=== PATIENT | female | born 1950 | race Caucasian/White ===

== ENCOUNTER 2022-09-23 12:47 | Observation (INO) | payer MEDICARE, SELFPAY ==
--- NOTE | ~2022-09-23 | XR_ITS ---
XR lumbar spine 2-3V DATE: 09/24/2022 17:41 INDICATION: L3 fracture. Recent fall, low back pain TECHNIQUE: Standing AP, lateral and coned lateral lumbosacral views COMPARISON: 09/23/2022 CT lumbar spine 09/24/2022 MR lumbar spine FINDINGS: There is mild thoracolumbar levoscoliosis. There is osteopenia. There is degenerative spurring throughout the included lower thoracic and upper lumbar spine consiste nt with diffuse idiopathic skeletal hyperostosis (DISH). There is moderately severe degenerative disc disease and mild retrolisthesis at L2-3. There is severe degenerative disc disease at L5-S1. There is prominent degenerative change at the apophyseal joints of the lower lumbar and lumbosacral a taylor with associated grade 1 anterolisthesis at L4-5. Included lower thoracic and lumbar pedicles are intact. Stable concave inferior vertebral endplate of L3 fracture with mild loss of height of this vertebral body. No fracture or bone destruction of the lumbar spine is noted otherwise. Degenerative change at the sacroiliac joints. No erosive change or ankylosis is evident and sacroilia c joints. Surgical clips, right upper quadrant, consistent with cholecystectomy. IMPRESSION: Stable L3 compression fracture Mild thoracolumbar levoscoliosis Multilevel degenerative disc disease, most severe at L5-S1 Degenerative changes apophyseal joints, with associated grade 1 anterolisthesis at L4-5 Diffuse idiopathic skeletal hyperostosis of the lower thoracic and upper lumbar spine Reviewed, dictated and finalized at location A. ER AIRCRAFT
--- NOTE | ~2022-09-23 | MR_ITS ---
EXAMINATION: MR lumbar spine wo con DATE: 09/24/2022 08:03 INDICATION: L3 fracture. Radicular pain. TECHNIQUE: Magnetic resonance imaging (MRI) of the lumbar spine was performed without intravenous con trast. Sequences included sagittal T2-weighted FSE, sagittal T2-weighted FS FSE, sagittal T1-weighted FSE, and axial T2-weighted FSE. COMPARISON: Lumbar spine radiographs 09/24/2022, CT 09/23/22 FINDINGS: There is 11 degrees levoscoliosis of the lumbar spine. There is 3 mm retrolisthesis of L2 o n L3 and 3 mm anterolisthesis of L4 on L5. There is mild chronic anterior wedging of T11 and T12 vert ebral bodies. There is a burst fracture involving L3 inferior endplate with 1/5 loss of height, low s ignal fracture line, bone marrow edema, and retropulsion of bone 2 mm into central spinal canal. Ther e is moderate decreased disc height at L2-L3 and severely decreased disc height at L5-S1 with endplat e remodeling. The distal spinal cord signal intensity is normal. The conus medullaris is at T12-L1. T he following disc levels are specifically discussed: L1-L2: The disc is bulging. There is mild bilateral facet joint osteoarthritis. There is mild right n eural foraminal stenosis. There is mild central canal stenosis. L2-L3: The disc is bulging with superimposed central extrusion. There is severe bilateral facet joint osteoarthritis. There is moderate bilateral neural foraminal stenosis. There is mild central canal s tenosis. L3-L4: The disc is bulging. There is severe bilateral facet joint osteoarthritis. There is mild bilat eral neural foraminal stenosis. There is no central canal stenosis. L4-L5: The disc is bulging. There is severe bilateral facet joint osteoarthritis. There is mild bilat eral neural foraminal stenosis. There is mild central canal stenosis. L5-S1: The disc is bulging. There is interbody fusion at L5-S1 with disc calcification. There is mild bilateral facet joint osteoarthritis. There is mild bilateral neural foraminal stenosis. There is mi ld central canal stenosis. IMPRESSION: 1. Acute versus subacute L3 burst fracture. 2. Moderate lumbar spondylosis. Reviewed, dictated and finalized at location A. ER RECEPTIONIST
--- NOTE | ~2022-09-23 | CT_ITS ---
EXAMINATION: CT lumbar spine wo con DATE: 09/23/2022 14:16 INDICATION: Low back pain post fall TECHNIQUE: Computed tomography (CT) of the lumbar spine was performed without intravenous contrast. A utomated exposure control and iterative reconstruction technique were employed. The dose-length produ ct was 1203.59 mGy-cm. COMPARISON: None FINDINGS: Mild lumbar levocurvature. 2-3 mm anterolisthesis L4 on L5. 2 mm retrolisthesis L2 on L3. Acute burst fracture with subtle linear lucent fracture lines along the inferior endplate of L3 with <20% centra l vertebral body height loss. There is 2 mm retropulsion along the inferior aspect of the posterior w all of L3. Remaining vertebral body heights are normal. Fusion across the L5-S1 disc space. Bridging osteophytes along the right lateral margin of T11 T12-T12 on L1 and nearly bridging at the L1-L2. Mod erate disc height loss with vacuum phenomena at L2-L3 mild disc height loss at T11-T12 and T12-L1. Mi nimal vacuum phenomena at L3-L4. 12 mm low-attenuation exophytic cyst at the upper pole the right kid shubham and 12 mm bilobed exophytic lesion at the posterior lower pole of the left kidney was slightly gr eater than simple fluid attenuation which remains equivocal between complex cyst and solid neoplasm. The following disc levels are specifically discussed: T11-T12: Small central disc protrusion. There is mild right and moderate left facet joint osteoarthri tis. There is mild right neural foraminal stenosis. There is mild central canal stenosis. T12-L1: Osteophyte versus ossification along the posterior longitudinal ligament. There is mild right and moderate left facet joint osteoarthritis. There is no neural foraminal stenosis. There is mild c entral canal stenosis. L1-L2: Disc is bulging. There is moderate bilateral facet joint osteoarthritis. There is mild right n eural foraminal stenosis. There is mild central canal stenosis. L2-L3: Disc is bulging with tiny focus of vacuum phenomena within a likely small disc extrusion on th e inferior posterior wall of L2. There is severe right and moderate to severe left facet joint osteoa rthritis. There is mild to moderate left and moderate right neural foraminal stenosis. There is mild to moderate central canal stenosis. L3-L4: Disc is mildly bulging. There is moderate to severe left and severe right facet joint osteoart hritis. There is mild to moderate bilateral neural foraminal stenosis. There is mild to moderate cent ral canal stenosis. L4-L5: Disc is bulging. There is severe bilateral facet joint osteoarthritis. There is mild left and mild to moderate right neural foraminal stenosis. There is moderate central canal stenosis. L5-S1: Disc space is fused with small bilateral foraminal zone endplate osteophytes. Effusion with mo derate hypertrophic change at the bilateral facet joints. There is moderate bilateral, right greater than left neural foraminal stenosis. There is no central canal stenosis. IMPRESSION: 1. Acute L3 burst fracture involving the inferior endplate, with <20% central vertebral body height l oss and with 2 mm retropulsion along the inferior aspect of the posterior wall. 2. Moderate lumbar and severe lumbosacral spondylosis. 2. 12 mm indeterminate eccentric left renal lesion most likely proteinaceous/hemorrhagic cysts althou gh differential includes solid neoplasm. . Would recommend follow-up pre and postcontrast MRI or CT. Reviewed, dictated and finalized at location B. BOX COVERER IMPRESSION: 1. Acute L3 burst fracture involving the inferior endplate, with <20% central v ertebral body height loss and with 2 mm retropulsion along the inferior aspect of the posterior wall. 2. Moderate lumbar and severe lumbosacral spondylosis. 2. 12 mm indeterminate ecce
[2022-09-23 12:56] VITALS: BP 166/70; PULSE 72; RESP 14; TEMP 36.8; O2SAT 98
[2022-09-23] MEDS: traMADol HCL (*CRX) 50 MG TABLET PO (14:05)
[2022-09-23] MEDS: ONDANSETRON HCL ODT 4 MG TABLET PO (15:15)
[2022-09-23] MEDS: HYDROmorphone HCL INJ (*CRX) 1 MG/ML SYR IM (15:15)
--- NOTE | 2022-09-23 15:15 | ED.FALL ---
HPI - Fall General Chief Complaint: Fall Stated Complaint: fall two days ago, back and leg pain Time Seen by Provider: 09/23/22 13:34 Source: patient and RN notes reviewed Mode of arrival: ambulatory Limitations: no limitations History of Present Illness HPI Narrative: This is a 71 year old female who presents for evaluation of lower back pain s/p fall. She states she accidentally fell 4 days ago, and she fell backwards, hitting her lower back on concrete steps. She has been having lower back pain that has gradually worsened. She also reports pain radiating down to her left lower leg and she also reports pain radiating to her right thigh. She denies leg weakness, numbness, tingling, bowel incontinence or urinary retention. She has been taking ibuprofen 400 mg every 6 hours for her pain without improvement. Related Data Home Medications Medication Instructions Recorded Confirmed amlodipine 5 mg tablet 5 mg PO DAILY 09/23/22 09/23/22 citalopram 20 mg tablet 20 mg PO DAILY 09/23/22 09/23/22 levothyroxine 137 mcg tablet 137 mcg PO DAILY 09/23/22 09/23/22 lisinopril 20 1 tablet PO DAILY 09/23/22 09/23/22 mg-hydrochlorothiazide 12.5 mg tablet metformin 500 mg tablet,extended 500 mg PO BID 09/23/22 09/23/22 release 24 hr pantoprazole 40 mg tablet,delayed 40 mg PO DAILY 09/23/22 09/23/22 release pioglitazone 15 mg tablet 15 mg PO DAILY 09/23/22 09/23/22 pravastatin 80 mg tablet 80 mg PO DAILY 09/23/22 09/23/22 Allergies Allergy/AdvReac Type Severity Reaction Status Date / Time clindamycin Allergy Rash Verified 09/23/22 20:42 Review of Systems Review of Systems: All systems reviewed & are unremarkable except as noted in HPI and below Constitutional: Constitutional: Denies chills and Denies fatigue Cardiovascular: Cardiovascular: Denies syncope, Denies rapid heart rate, Denies irregular heart rhythm, Denies leg edema and Denies dyspnea Respiratory: Respiratory: Denies chest congestion, Denies hemoptysis, Denies excessive phlegm production and Denies dyspnea Gastrointestinal: Gastrointestinal: Denies abdominal pain, Denies hematochezia, Denies diarrhea and Denies vomiting Genitourinary: Genitourinary: Denies hematuria and Denies dysuria Musculoskeletal: Musculoskeletal: Denies joint swelling and Denies muscle weakness Neurologic: Denies syncope, Denies focal weakness and Denies weakness PMFSH Past Medical History Medical History (Updated 09/23/22 @ 22:30 by Arianne Álvarez MD) Anxiety Hypertension Surgical History Surgical History (Updated 09/23/22 @ 15:20 by Arianne Álvarez MD) H/O neck surgery Social History Social History (Updated 09/23/22 @ 15:20 by Arianne Álvarez MD) Smoking status: Never smoker Exam Const: General: no acute distress and alert Nutritional Appearance: well nourished and obese Orientation/consciousness: patient oriented x3 Limitations: no limitations HENMT: Face and sinus: normal facial exam Eyes: EOM: EOMs intact bilaterally Neck: Neck: normal visual inspection Chest: Chest palpation & inspection: normal inspection of the chest Resp: Effort & Inspection: normal respiratory effort Auscultation: clear to auscultation bilaterally Cardio: Rate: regular rate Rhythm: regular rhythm Heart sounds: no murmurs GI: GI Palp: Yes Soft to palpation, No Tenderness to palpation present (GI), No Guarding due to palpation present (GI) and No Rigid due to palpation Auscultation: normal bowel sounds Back/Spine/Pelvis: Back: no CVA tenderness Cervical Spine: cervical ROM normal Thoracic/Lumbar Spine: paraspinal muscle tenderness on the left Pelvis: buttock tenderness on the left Course Consultations Consultation #1: I discussed case with DR. Leblanc with neurosurgery. He reviewed patient's CT lumbar spine. He recommends that patient get MRI lumbar spine due to radicular pain. He states patient can stay at [place] and being admitted to hospital and they will
[2022-09-23 16:13] LABS: Basophils Absolute Auto 0.1 K/mm3 (0.0-0.1); Basophils Percent Auto 0.6 % (0.2-1.2); Eosinophils Absolute Auto 0.3 K/mm3 (0-0.3); Eosinophils Percent Auto 3.6 % (0-4.4); Hematocrit 39.2 % (37.0-47.0); Hemoglobin 12.4 g/dL (12.0-15.0); Immature Granulocyte Absolute 0.02 K/mm3 (0.00-0.031); Immature Granulocyte Percent A 0.3 % (0-0.5); Lymphocytes Absolute Auto 2.02 K/mm3 (0.9-3.2); Lymphocytes Percent Auto 25.6 % (18.3-44.2); Mean Corpuscular HGB Conc 31.6 g/dl (32-36); Mean Corpuscular Hemoglobin 26.8 pg (26-34); Mean Corpuscular Volume 84.8 fl (80-100); Mean Platelet Volume 9.9 fl (7.4-10.4); Monocytes Absolute Auto 0.5 K/mm3 (0.1-0.6); Monocytes Percent Auto 5.8 % (2.6-8.5); Neutrophils Absolute Auto 5.1 K/mm3 (1.3-6.7); Neutrophils Percent Auto 64.1 % (45.5-73.1); Platelet Count Result 307 k/mm3 (150-375); Red Blood Count 4.62 M/mm3 (4.2-5.4); Red Cell Distribution Width 14.1 % (11.5-14.5); White Blood Count 7.9 K/mm3 (4.5-10.0)
[2022-09-23 16:25] LABS: Alanine Aminotransferase 32 U/L (6-35); Albumin Level 4.2 g/dL (3.5-5.1); Alkaline Phosphatase 59 U/L (38-126); Anion Gap 7 mmol/L (8-16); Aspartate Amino Transferase 35 U/L (14-36); Bilirubin,Total 0.6 mg/dL (0.2-1.3); Blood Urea Nitrogen 22 mg/dL (7-17); Calcium 8.5 mg/dL (8.4-10.2); Carbon Dioxide 28 mmol/L (22-30); Chloride 98 mmol/L (98-107); Estimated CRCL calculation 49 ml/min; Estimated Glomerular Filt Rate 54; Glucose 110 mg/dL (65-110); Potassium 3.5 mmol/L (3.4-5.0); Sodium 133 mmol/L (137-145)
[2022-09-23 16:59] LABS: Influenza A QL RT-PCR Negative (Negative); Influenza B QL RT-PCR Negative (Negative); SARS-CoV-2 RNA PCR Negative
--- NOTE | 2022-09-23 18:00 | PM.IMHP ---
H&P: HPI History of Present Illness Date/Time: 09/23/22 18:00 Chief Complaint: Back pain after fall. Narrative: This is a very pleasant 71-year-old female with hypertension, hyperlipidemia, hypothyroidism, diabetes, sleep apnea, and rheumatoid arthritis who presented to the ED for evaluation of back pain after a fall. She is from [place], [place] and she and her recently traveled to the area to be with family for the holidays. The day before they left on their journey, she had her hands full and accidentally stepped backwards and fell down a couple of steps flat on her back. She did not really have any pain or discomfort the 1st day however since that time she has had increasing pain in the lower back that has been constant. She has a difficult time describing the pain in the low back but states that it radiates a ?hot poker? like pain down her left leg and she is now having some soreness in the right upper outer thigh. The in her legs is worse with weight-bearing. She has not been able to find a comfortable position to improve the pain in the low back. She has been taking ibuprofen 400 milligrams q.6 hours for her pain without much improvement. She has tried heat and that has not helped either. She has not slept and she has not had much of an appetite due to the pain. She denies head trauma and loss of consciousness in the fall. She has not noticed any weakness in the lower extremities or paresthesias and she denies saddle anesthesia and bowel and bladder issues. Lumbar CT in the ER showed acute L3 burst fracture involving the inferior endplate with less than 20% central vertebral body height loss and 2 millimeters retropulsion along the inferior aspect of the posterior wall. Case was discussed with the neurosurgeon on-call who recommends admission for pain control an MRI in a.m. Also of note a 12 millimeter indeterminate a centric left renal lesion was also noted and patient reports that this has been seen before and it has been stable. Review of Systems Review of Systems: Twelve systems were reviewed and are negative except for as per HPI. [facility] Past Medical History Medical History (Updated 09/23/22 @ 22:43 by Jacquie Arredondo PA-C) Anxiety Hyperlipidemia Hypertension Hypothyroidism associated with surgical procedure Obstructive sleep apnea on CPAP Rheumatoid arthritis Thyroid cancer Status post thyroidectomy. Type 2 diabetes mellitus Surgical History Surgical History (Updated 09/23/22 @ 22:38 by Jacquie Arredondo PA-C) History of appendectomy History of cholecystectomy History of hernia repair History of laminectomy History of thyroidectomy History of tonsillectomy Family History Family History (Updated 09/23/22 @ 22:38 by Jacquie Arredondo PA-C) Other Adopted Social History Social History (Updated 09/23/22 @ 22:40 by Jacquie Arredondo PA-C) Social History: Lives in [place], [place] with spouse. They have 2 children. Retired from a management position for several medical specialties. No alcohol, tobacco, or illicit substance abuse. Surrogate medical decision maker: Chidi Macariod, spouse. Code status: Full code. Meds Home Medications and Allergies Home Medications Medication Instructions Recorded Confirmed Type amlodipine 5 mg tablet 5 mg PO DAILY 09/23/22 09/23/22 History citalopram 20 mg tablet 20 mg PO DAILY 09/23/22 09/23/22 History levothyroxine 137 mcg tablet 137 mcg PO DAILY 09/23/22 09/23/22 History lisinopril 20 1 tablet PO DAILY 09/23/22 09/23/22 History mg-hydrochlorothiazide 12.5 mg tablet metformin 500 mg tablet,extended 500 mg PO BID 09/23/22 09/23/22 History release 24 hr pantoprazole 40 mg tablet,delayed 40 mg PO DAILY 09/23/22 09/23/22 History release pioglitazone 15 mg tablet 15 mg PO DAILY 09/23/22 09/23/22 History pravastatin 80 mg tablet 80 mg PO DAILY 09/23/22 09/23/22 History Allergies Allergy/AdvReac Type Severity Reaction Statu
[2022-09-23 18:28] VITALS: BP 114/69; PULSE 70; RESP 18; O2SAT 95
[2022-09-23 19:12] VITALS: BP 132/52; PULSE 72; RESP 18; O2SAT 96
[2022-09-23] MEDS: HYDROmorphone HCL INJ (*CRX) 1 MG/ML SYR 0.5 MG IV PUSH ×2 (19:16→23:29)
--- NOTE | 2022-09-23 20:40 | PC.NURSE ---
Patient arrived on 3 Med-Surg on 20:40 on 09/23/2022
[2022-09-23 20:51] VITALS: BMI 40.5
[2022-09-23 21:51] VITALS: BP 116/42; PULSE 66; RESP 18; TEMP 36.2; O2SAT 90
[2022-09-23 22:49] VITALS: BMI 40.5
[2022-09-23] MEDS: SODIUM CHLORIDE 0.9% IV 1,000 ML 100 ML IV CONT (23:43)
[2022-09-24 01:31] LABS: Glucose Point of Care 109 mg/dl (65-105)
[2022-09-24] MEDS: HYDROmorphone HCL INJ (*CRX) 1 MG/ML SYR 0.5 MG IV PUSH (05:04)
[2022-09-24] MEDS: LEVOTHYROXINE SODIUM 25 MCG TABLET PO (05:40)
[2022-09-24] MEDS: LEVOTHYROXINE SODIUM 112 MCG TABLET PO (05:40)
[2022-09-24 05:52] VITALS: BP 100/50; PULSE 83; RESP 20; TEMP 36.4; O2SAT 92
[2022-09-24 06:46] LABS: Anion Gap 5 mmol/L (8-16); Blood Urea Nitrogen 19 mg/dL (7-17); Calcium 8.2 mg/dL (8.4-10.2); Carbon Dioxide 29 mmol/L (22-30); Chloride 98 mmol/L (98-107); Estimated CRCL calculation 49 ml/min; Estimated Glomerular Filt Rate 49; Glucose 138 mg/dL (65-110); Magnesium 1.6 mg/dL (1.6-2.3); Potassium 3.6 mmol/L (3.4-5.0); Sodium 132 mmol/L (137-145)
[2022-09-24 06:50] LABS: Hematocrit 38.4 % (37.0-47.0); Hemoglobin 12.1 g/dL (12.0-15.0); Mean Corpuscular HGB Conc 31.5 g/dl (32-36); Mean Corpuscular Hemoglobin 27.6 pg (26-34); Mean Corpuscular Volume 87.7 fl (80-100); Mean Platelet Volume 10.2 fl (7.4-10.4); Platelet Count Result 304 k/mm3 (150-375); Red Blood Count 4.38 M/mm3 (4.2-5.4); Red Cell Distribution Width 14.1 % (11.5-14.5); White Blood Count 7.7 K/mm3 (4.5-10.0)
--- NOTE | 2022-09-24 07:52 | P.PNIM_ITS ---
Progress Note: A&P Assessment and Plan (1) Burst fracture of lumbar vertebra: Qualifiers: Encounter type: initial encounter Fracture type: closed Qualified Code(s): S32.001A - Stable burst fracture of unspecified lumbar vertebra, initial encounter for closed fracture Code(s): S32.001A - Stable burst fracture of unspecified lumbar vertebra, initial encounter for closed fracture Status: Acute Assessment and Plan: * Reported fall of 2 steps on back * L3 burst fracture noted * Neurosurgery consulted * Will need weight bearing status and most likely a brace * Pain medications on board * MRI ordered (2) Hyponatremia: Code(s): E87.1 - Hypo-osmolality and hyponatremia Status: Acute Assessment and Plan: * Current sodium 132 * Stop fluids since sodium is stable * Continue to trend labs * Adjust therapy as indicated (3) Hypertension: Code(s): I10 - Essential (primary) hypertension Status: Acute Assessment and Plan: * BP currently 100/50, probably related to pain medications * Continue amlodipine and lisinopril, continue to hold HCTZ for now * Trend BP * Adjust therapy as indicated (4) Hyperlipidemia: Code(s): E78.5 - Hyperlipidemia, unspecified Status: Acute Assessment and Plan: * Continue statin; LFTs within normal limits. (5) Type 2 diabetes mellitus: Code(s): E11.9 - Type 2 diabetes mellitus without complications Status: Acute Assessment and Plan: * Current glucose is 138 * Continue home medications * Initiate sliding scale insulin * Accu-Cheks * hypoglycemic protocol. * A1c (6) Hypothyroidism associated with surgical procedure: Code(s): E89.0 - Postprocedural hypothyroidism Status: Acute Assessment and Plan: * Continue levothyroxine * TSH 0.254, T4 (7) Obstructive sleep apnea on CPAP: Code(s): G47.33 - Obstructive sleep apnea (adult) (pediatric); Z99.89 - Dependence on other enabling machines and devices Status: Acute Assessment and Plan: * CPAP will be provided for the patient to use while hospitalized. Time Spent With Patient Time with patient: Greater than 35 minutes Subjective Date/time seen: 09/24/22 07:52 Interval history: 09/23/22? 18:00 This is a very pleasant 71-year-old female with hypertension, hyperlipidemia, hypothyroidism, diabetes, sleep apnea, and rheumatoid arthritis who presented to the ED for evaluation of back pain after a fall. She is from [place], [place] and she and her recently traveled to the area to be with family for the holidays. The day before they left on their journey, she had her hands full and accidentally stepped backwards and fell down a couple of steps flat on her back. She did not really have any pain or discomfort the 1st day however since that time she has had increasing pain in the lower back that has been constant. She has a difficult time describing the pain in the low back but states that it radiates a ?hot poker? like pain down her left leg and she is now having some soreness in the right upper outer thigh. The in her legs is worse with weight- bearing. She has not been able to find a comfortable position to improve the pain in the low back. Sh
--- NOTE | 2022-09-24 07:52 | PM.IMPN ---
Progress Note: A&P Assessment and Plan (1) Burst fracture of lumbar vertebra: Qualifiers: Encounter type: initial encounter Fracture type: closed Qualified Code(s): S32.001A - Stable burst fracture of unspecified lumbar vertebra, initial encounter for closed fracture Code(s): S32.001A - Stable burst fracture of unspecified lumbar vertebra, initial encounter for closed fracture Status: Acute Assessment and Plan: Reported fall of 2 steps on back L3 burst fracture noted Neurosurgery consulted Will need weight bearing status and most likely a brace Pain medications on board MRI ordered (2) Hyponatremia: Code(s): E87.1 - Hypo-osmolality and hyponatremia Status: Acute Assessment and Plan: Current sodium 132 Stop fluids since sodium is stable Continue to trend labs Adjust therapy as indicated (3) Hypertension: Code(s): I10 - Essential (primary) hypertension Status: Acute Assessment and Plan: BP currently 100/50, probably related to pain medications Continue amlodipine and lisinopril, continue to hold HCTZ for now Trend BP Adjust therapy as indicated (4) Hyperlipidemia: Code(s): E78.5 - Hyperlipidemia, unspecified Status: Acute Assessment and Plan: Continue statin; LFTs within normal limits. (5) Type 2 diabetes mellitus: Code(s): E11.9 - Type 2 diabetes mellitus without complications Status: Acute Assessment and Plan: Current glucose is 138 Continue home medications Initiate sliding scale insulin Accu-Cheks hypoglycemic protocol. A1c (6) Hypothyroidism associated with surgical procedure: Code(s): E89.0 - Postprocedural hypothyroidism Status: Acute Assessment and Plan: Continue levothyroxine TSH 0.254, T4 (7) Obstructive sleep apnea on CPAP: Code(s): G47.33 - Obstructive sleep apnea (adult) (pediatric); Z99.89 - Dependence on other enabling machines and devices Status: Acute Assessment and Plan: CPAP will be provided for the patient to use while hospitalized. Time Spent With Patient Time with patient: Greater than 35 minutes Subjective Date/time seen: 09/24/22 07:52 Interval history: 09/23/22? 18:00 This is a very pleasant 71-year-old female with hypertension, hyperlipidemia, hypothyroidism, diabetes, sleep apnea, and rheumatoid arthritis who presented to the ED for evaluation of back pain after a fall. She is from [place], [place] and she and her recently traveled to the area to be with family for the holidays. The day before they left on their journey, she had her hands full and accidentally stepped backwards and fell down a couple of steps flat on her back. She did not really have any pain or discomfort the 1st day however since that time she has had increasing pain in the lower back that has been constant. She has a difficult time describing the pain in the low back but states that it radiates a ?hot poker? like pain down her left leg and she is now having some soreness in the right upper outer thigh. The in her legs is worse with weight-bearing. She has not been able to find a comfortable position to improve the pain in the low back. She has been taking ibuprofen 400 milligrams q.6 hours for her pain without much improvement.? She has tried heat and that has not helped either. She has not slept and she has not had much of an appetite due to the pain. She denies head trauma and loss of consciousness in the fall. She has not noticed any weakness in the lower extremities or paresthesias and she denies saddle anesthesia and bowel and bladder issues. Lumbar CT in the ER showed acute L3 burst fracture involving the inferior endplate with less than 20% central vertebral body height loss and 2 millimeters retropulsion along the inferior a
[2022-09-24 07:54] LABS: Thyroid Stimulating Hormone Reflex 0.254 uIU/mL (0.465-4.68)
[2022-09-24 08:21] LABS: Glucose Point of Care 150 mg/dl (65-105)
[2022-09-24] MEDS: MAGNESIUM SULF 4 GM/WATER100ML 4 GM/100 ML BAG IVPB (08:39)
[2022-09-24] MEDS: PIOGLITAZONE HCL 15 MG TAB PO (08:42)
[2022-09-24] MEDS: ENOXAPARIN 40 MG/0.4 ML SYRINGE SUB-Q (08:42)
[2022-09-24] MEDS: lisinopriL 20 MG TABLET PO (08:43)
[2022-09-24] MEDS: CITALOPRAM HYDROBROMIDE 20 MG TABLET PO (08:43)
[2022-09-24] MEDS: PANTOPRAZOLE 40 MG TABLET PO (08:44)
[2022-09-24] MEDS: metFORMIN HCL XR 500 MG TAB.SR.24H PO ×2 (08:44→17:47)
[2022-09-24 08:45] VITALS: RESP 20; O2SAT 94
[2022-09-24] MEDS: PRAVASTATIN SODIUM 20 MG TABLET 80 MG PO (08:45)
[2022-09-24] MEDS: HYDROcodone/acetaminophen (*CRX) 5-325 MG TABLET 1 TAB PO ×2 (09:47→14:31)
[2022-09-24 10:43] LABS: Hemoglobin A1C 7.1 % (<5.7)
--- NOTE | 2022-09-24 11:50 | WPDNEUROSGCN ---
Assessment and Plan Assessment and plan (1) Burst fracture of lumbar vertebra: Qualifiers: Encounter type: initial encounter Fracture type: closed Qualified Code(s): S32.001A - Stable burst fracture of unspecified lumbar vertebra, initial encounter for closed fracture Code(s): S32.001A - Stable burst fracture of unspecified lumbar vertebra, initial encounter for closed fracture Status: Acute Assessment and Plan: The fracture is nondisplaced with minimal height loss. It can be treated with a TLSO. The radicular pain may be from acute on chronic extrusion of the L2/3 disc. However, the disc bulging is lateral and not causing significant central stenosis. I do not feel this needs surgical management acutely and may improve with time. Would consider further management once the bone heals if pain persists. Patient is from out of town and will need to set up appropriate follow-up with her health providers at home. I recommend she wear a TLSO when out of bed including for the drive home and to take multiple breaks. I also recommend gabapentin for the radicular pain. Plan - TLSO, wear for next 6 weeks when out of bed - standing XR in TLSO, will assess prior to discharge - gabapentin - patient should follow-up with family doctor and arrange spine care local to her home [facility] Past Medical History Medical History (Updated 09/23/22 @ 22:43 by Jacquie Arredondo PA-C) Anxiety Hyperlipidemia Hypertension Hypothyroidism associated with surgical procedure Obstructive sleep apnea on CPAP Rheumatoid arthritis Thyroid cancer Status post thyroidectomy. Type 2 diabetes mellitus Surgical History Surgical History (Updated 09/23/22 @ 22:38 by Jacquie Arredondo PA-C) History of appendectomy History of cholecystectomy History of hernia repair History of laminectomy History of thyroidectomy History of tonsillectomy Family History Family History (Updated 09/23/22 @ 22:58 by Sebastian Mathews RN) Mother Cervical cancer Other Adopted Social History Social History (Updated 09/23/22 @ 22:40 by Jacquie Arredondo PA-C) Social History: Lives in [place], [place] with spouse. They have 2 children. Retired from a management position for several medical specialties. No alcohol, tobacco, or illicit substance abuse. Surrogate medical decision maker: Chidi Petersen, spouse. Code status: Full code. Smoking status: Never smoker Alcohol intake: never Substance use type: does not use Lack of Transportation: No Lack of Food: Never True Current Housing: I Have Housing Concerned About Future Housing: No Difficulty Paying Gas/Electric Bills: No Difficulty Paying for Meds: No Currently Unemployed: No Education: Associate Degree Difficulty w/ Childcare or Family Care: No Spiritual care concerns: Yes (Would like to speak to a coater helper) Meds Home Medications and Allergies Home Medications Medication Instructions Recorded Confirmed Type amlodipine 5 mg tablet 5 mg PO DAILY 09/23/22 09/23/22 History citalopram 20 mg tablet 20 mg PO DAILY 09/23/22 09/23/22 History levothyroxine 137 mcg tablet 137 mcg PO DAILY 09/23/22 09/23/22 History lisinopril 20 1 tablet PO DAILY 09/23/22 09/23/22 History mg-hydrochlorothiazide 12.5 mg tablet metformin 500 mg tablet,extended 500 mg PO BID 09/23/22 09/23/22 History release 24 hr pantoprazole 40 mg tablet,delayed 40 mg PO DAILY 09/23/22 09/23/22 History release pioglitazone 15 mg tablet 15 mg PO DAILY 09/23/22 09/23/22 History pravastatin 80 mg tablet 80 mg PO DAILY 09/23/22 09/23/22 History Allergies Allergy/AdvReac Type Severity Reaction Status Date / Time clindamycin Allergy Rash Verified 09/23/22 20:42 Vital Signs Vital Signs - 24 hr 09/23/22 12:56 09/23/22 18:28 09/23/22 19:12 Temperature 36.8 C Pulse Rate 72 70 72 Respiratory Rate 14 18 18 Blood Pressure 166/70 H 114/69 132/52 L Pulse Oximetr
[2022-09-24 11:55] LABS: Glucose Point of Care 137 mg/dl (65-105)
--- NOTE | 2022-09-24 12:00 | P.DS_ITS ---
DS: Admitting Diagnosis Discharge Date 09/24/22 1200 Admitting Diagnosis Fall with an L3 burst fracture DS: Discharge Diagnosis Discharge Diagnosis (1) Burst fracture of lumbar vertebra: Qualifiers: Encounter type: initial encounter Fracture type: closed Qualified Code(s): S32.001A - Stable burst fracture of unspecified lumbar vertebra, initial encounter for closed fracture Code(s): S32.001A - Stable burst fracture of unspecified lumbar vertebra, initial encounter for closed fracture Status: Acute Assessment and Plan: * Reported fall of 2 steps on back * L3 burst fracture noted * Neurosurgery consulted * Will need weight bearing status and most likely a brace * TLSO brace ordered * Pain medications on board * MRI ordered1. Acute versus subacute L3 burst fracture 2. Moderate lumbar spondylosis. (2) Hyponatremia: Code(s): E87.1 - Hypo-osmolality and hyponatremia Status: Acute Assessment and Plan: * Current sodium 132 * Stop fluids since sodium is stable * Continue to trend labs * Adjust therapy as indicated (3) Hypertension: Code(s): I10 - Essential (primary) hypertension Status: Acute Assessment and Plan: * BP currently 100/50, probably related to pain medications * Continue amlodipine and lisinopril, continue to hold HCTZ for now * Trend BP * Adjust therapy as indicated (4) Hyperlipidemia: Code(s): E78.5 - Hyperlipidemia, unspecified Status: Acute Assessment and Plan: * Continue statin; LFTs within normal limits. (5) Type 2 diabetes mellitus: Code(s): E11.9 - Type 2 diabetes mellitus without complications Status: Acute Assessment and Plan: * Current glucose is 138 * Continue home medications * Initiate sliding scale insulin * Accu-Cheks * hypoglycemic protocol. * A1c (6) Hypothyroidism associated with surgical procedure: Code(s): E89.0 - Postprocedural hypothyroidism Status: Acute Assessment and Plan: * Continue levothyroxine * TSH 0.254, T4 (7) Obstructive sleep apnea on CPAP: Code(s): G47.33 - Obstructive sleep apnea (adult) (pediatric); Z99.89 - Dependence on other enabling machines and devices Status: Acute Assessment and Plan: * CPAP will be provided for the patient to use while hospitalized. DS: Summary Hospital Course Hospital Course: patient is a 71-year-old female with a past medical history of hypertension, hyperlipidemia, hypothyroidism, diabetes, sleep apnea, rheumatoid arthritis who presented to the ED for evaluation of back pain. Patient was leaving her house to come here for [place] and she had fallen on her back. Upon arrival it was noted that the patient did have an L3 burst fracture. MRI was recommended and obtained. MRI did show an acute burst fracture as well. Patient has been controlled with pain medications. Neurosurgery was consulted. Recommendations for a TLSO brace and a follow-up appointment with her [place] neurosurgeon was recommended. Patient is wanting to go home. Neurosurgery has requested the patient be started on gabapentin. Patient will get her TLSO brace and then have an x-ray prior to discharge. Currently patient has no complaints inclu
--- NOTE | 2022-09-24 12:00 | PM.DS ---
DS: Admitting Diagnosis Discharge Date 09/24/22 1200 Admitting Diagnosis Fall with an L3 burst fracture DS: Discharge Diagnosis Discharge Diagnosis (1) Burst fracture of lumbar vertebra: Qualifiers: Encounter type: initial encounter Fracture type: closed Qualified Code(s): S32.001A - Stable burst fracture of unspecified lumbar vertebra, initial encounter for closed fracture Code(s): S32.001A - Stable burst fracture of unspecified lumbar vertebra, initial encounter for closed fracture Status: Acute Assessment and Plan: Reported fall of 2 steps on back L3 burst fracture noted Neurosurgery consulted Will need weight bearing status and most likely a brace TLSO brace ordered Pain medications on board MRI ordered1. Acute versus subacute L3 burst fracture 2. Moderate lumbar spondylosis. (2) Hyponatremia: Code(s): E87.1 - Hypo-osmolality and hyponatremia Status: Acute Assessment and Plan: Current sodium 132 Stop fluids since sodium is stable Continue to trend labs Adjust therapy as indicated (3) Hypertension: Code(s): I10 - Essential (primary) hypertension Status: Acute Assessment and Plan: BP currently 100/50, probably related to pain medications Continue amlodipine and lisinopril, continue to hold HCTZ for now Trend BP Adjust therapy as indicated (4) Hyperlipidemia: Code(s): E78.5 - Hyperlipidemia, unspecified Status: Acute Assessment and Plan: Continue statin; LFTs within normal limits. (5) Type 2 diabetes mellitus: Code(s): E11.9 - Type 2 diabetes mellitus without complications Status: Acute Assessment and Plan: Current glucose is 138 Continue home medications Initiate sliding scale insulin Accu-Cheks hypoglycemic protocol. A1c (6) Hypothyroidism associated with surgical procedure: Code(s): E89.0 - Postprocedural hypothyroidism Status: Acute Assessment and Plan: Continue levothyroxine TSH 0.254, T4 (7) Obstructive sleep apnea on CPAP: Code(s): G47.33 - Obstructive sleep apnea (adult) (pediatric); Z99.89 - Dependence on other enabling machines and devices Status: Acute Assessment and Plan: CPAP will be provided for the patient to use while hospitalized. DS: Summary Hospital Course Hospital Course: patient is a 71-year-old female with a past medical history of hypertension, hyperlipidemia, hypothyroidism, diabetes, sleep apnea, rheumatoid arthritis who presented to the ED for evaluation of back pain. Patient was leaving her house to come here for [place] and she had fallen on her back. Upon arrival it was noted that the patient did have an L3 burst fracture. MRI was recommended and obtained. MRI did show an acute burst fracture as well. Patient has been controlled with pain medications. Neurosurgery was consulted. Recommendations for a TLSO brace and a follow-up appointment with her hometown neurosurgeon was recommended. Patient is wanting to go home. Neurosurgery has requested the patient be started on gabapentin. Patient will get her TLSO brace and then have an x-ray prior to discharge. Currently patient has no complaints including chest pain, shortness a breath, nausea, vomiting, diarrhea or constipation. She did state that she was having pain about a 6 or 7. She did say that the neurosurgeon just left and exacerbated the pain however she is also hesitant about taking pain medications. Will send her on some pain medication however has instructed her about pain medication etiquette. I also explained to her that she could also try ibuprofen in between doses. Status at Discharge Functional status at discharge: independent ambulation Overall status at discharge: patient is progressing back to baseline Time Spent with Татьяна
[2022-09-24 14:00] VITALS: BP 127/49; PULSE 69; RESP 20; TEMP 36.3; O2SAT 90
[2022-09-24] MEDS: GABAPENTIN 300 MG CAPSULE PO ×2 (14:03→17:47)
[2022-09-24 14:17] LABS: Free T4 Free Thyroxine Reflex 1.68 ng/dL (0.78-2.19)
[2022-09-24 16:46] LABS: Glucose Point of Care 101 mg/dl (65-105)
== END 2022-09-24 19:10 | disposition home or self-care (01) ==
LOC: ANHED 14:03 → ANH3MEDSUR 20:38
PROVIDERS: Physician Assistant; Admitting Provider Chiropractor; Emergency Provider General Practice; Visit Provider Internal Medicine
DX: S32.031A Stable burst fracture of third lumbar vertebra, initial encounter for closed fracture (principal); M79.662 Pain in left lower leg; M79.651 Pain in right thigh; W10.9XXA Fall (on) (from) unspecified stairs and steps, initial encounter; E87.1 Hypo-osmolality and hyponatremia; M47.816 Spondylosis without myelopathy or radiculopathy, lumbar region; M47.817 Spondylosis without myelopathy or radiculopathy, lumbosacral region; N28.9 Disorder of kidney and ureter, unspecified; I10 Essential (primary) hypertension; M06.9 Rheumatoid arthritis, unspecified; M51.37 Other intervertebral disc degeneration, lumbosacral region; Z20.822 Contact with and (suspected) exposure to COVID-19; F41.9 Anxiety disorder, unspecified; E78.5 Hyperlipidemia, unspecified; E89.0 Postprocedural hypothyroidism; E11.9 Type 2 diabetes mellitus without complications; G47.33 Obstructive sleep apnea (adult) (pediatric); Z99.89 Dependence on other enabling machines and devices; Z79.84 Long term (current) use of oral hypoglycemic drugs; Z79.899 Other long term (current) drug therapy
CPT/HCPCS: 36415; 72100; 72131; 72148; 80048; 80053; 82948; 83036; 83735; 84439; 84443; 84480; 85025; 85027; 87636; 96361; 96365; 96372; 96374; 96376; 99285; A9270; G0378; J1170; J1650; J3475; J7030